=== PATIENT | male | born 1965 | race Caucasian/White ===

== ENCOUNTER 2017-05-20 09:03 | Emergency (ER) | payer BC ==
--- NOTE | 2017-05-20 09:17 | ER Document Report ---
ED Medical Screen (RME) - General Chief Complaint: Skin Problem Stated Complaint: YELLOWISH SKIN Time Seen by Provider: 05/20/17 09:14 Notes: Patient presents with right-sided abdominal pain that radiates to his right back. He also states he noticed that he has been jaundiced. He states he is weak and tired. No vomiting. He states his urine has been very dark. He states that his bowel movements look like sawdust. He states he does not know of anything that has been different recently other than he did receive a pneumonia and tetanus vaccine at the end of April just before the symptoms started. TRAVEL OUTSIDE OF THE [place] IN LAST 30 DAYS: No - Related Data Allergies/Adverse Reactions: No Known Allergies Allergy (Verified 05/20/17 09:08) Past Medical History Endocrine Medical History: Reports: Hx Diabetes Mellitus Type 2 Renal/ Medical History: Denies: Hx Peritoneal Dialysis Past Surgical History: Reports: Hx Orthopedic Surgery - bilat wrists, back - Immunizations Immunizations up to date: Yes Hx Diphtheria, Pertussis, Tetanus Vaccination: Yes Physical Exam - Vital signs Vitals: Temp Pulse Resp BP Pulse Ox 97.8 F 104 H 18 142/71 H 96 05/20/17 09:06 05/20/17 09:06 05/20/17 09:06 05/20/17 09:06 05/20/17 09:06 Course - Vital Signs Vital signs: Temp Pulse Resp BP Pulse Ox 97.8 F 104 H 18 142/71 H 96 05/20/17 09:06 05/20/17 09:06 05/20/17 09:06 05/20/17 09:06 05/20/17 09:06
[2017-05-20 09:52] LABS: HEMATOCRIT 40.1 % (37.9-51.0); HEMOGLOBIN 13.2 g/dL (13.5-17.0); HGB HCT DIFFERENCE -0.5; MEAN CORPUSCULAR HGB CONC 32.9 g/dL (32.0-36.0); MEAN CORPUSCULAR VOLUME 91 fl (80-97); RED CELL DISTRIBUTION WIDTH 14.1 % (11.5-14.0); WHITE BLOOD COUNT 12.1 10^3/uL (4.0-10.5)
[2017-05-20 10:01] LABS: APPEARANCE,URINE CLEAR; BILIRUBIN,URINE MODERATE (NEGATIVE); GLUCOSE, URINE >=500 mg/dL (NEGATIVE); KETONES,URINE 20 mg/dL (NEGATIVE); LEUKOCYTE ESTERASE,URINE NEGATIVE (NEGATIVE); NITRITE,URINE NEGATIVE (NEGATIVE); PROTEIN,URINE 30 mg/dL (NEGATIVE); URINE SPECIFIC GRAVITY 1.032
[2017-05-20 10:14] LABS: ALANINE AMINOTRANSFERASE 487 U/L (21-72); ALBUMIN 3.9 g/dL (3.5-5.0); ALKALINE PHOSPHATASE 958 U/L (38-126); ANION GAP 16 (5-19); ASPARTATE AMINO TRANSFERASE 267 U/L (17-59); BILIRUBIN,DIRECT 14.1 mg/dL (0.0-0.4); BILIRUBIN,TOTAL 15.5 mg/dL (0.2-1.3); BLOOD UREA NITROGEN 17 mg/dL (7-20); CARBON DIOXIDE 16 mmol/L (22-30); CHLORIDE 106 mmol/L (98-107); CREATININE RESULT 0.79 mg/dL (0.52-1.25); GLUCOSE 188 mg/dL (75-110); POTASSIUM 4.3 mmol/L (3.6-5.0); TOTAL PROTEIN 7.5 g/dL (6.3-8.2)
[2017-05-20 10:18] LABS: BASOPHILS % (MANUAL) 0 % (0-2); EOSINOPHILS % (MANUAL) 3 % (0-6); LYMPHOCYTES % (MANUAL) 29 % (13-45); TOTAL CELLS COUNTED 100
[2017-05-20 10:21] LABS: ANISOCYTOSIS 1+; STOMATOCYTES 1+; TARGET CELLS 1+; TOXIC GRANULATION 1+
--- NOTE | 2017-05-20 11:17 | ER Document Report ---
ED GI/ - General Chief Complaint: Skin Problem Stated Complaint: YELLOWISH SKIN Time Seen by Provider: 05/20/17 09:14 Information source: Patient Notes: Patient is a 52-year-old male with past medical history as recorded who presents today with some onset around 48 hours ago of "yellow skin". He states it was noticed by coworkers. He denies any nausea, vomiting, fevers, or previous history of liver or abdominal pathology. Patient states he has had light-colored stools. Patient states some mild epigastric nonradiating abdominal discomfort over the last 48 hours. No previous history of this in the past. TRAVEL OUTSIDE OF THE [place] IN LAST 30 DAYS: No - HPI Patient complains to provider of: Abdominal pain, Other - See above Onset: Other - See above Timing/Duration: Gradual Quality of pain: Achy Severity at maximum: Mild Severity in ED: Almost gone Pain Level: 2 Location: Epigastric Sexual history: Inactive Associated symptoms: Other - See above Exacerbated by: Denies Relieved by: Denies Similar symptoms previously: No Recently seen / treated by doctor: No - Related Data Allergies/Adverse Reactions: No Known Allergies Allergy (Verified 05/20/17 09:08) Past Medical History - General Information source: Patient - Social History Smoking Status: Unknown if Ever Smoked Chew tobacco use (# tins/day): No Smoking Education Provided: No Frequency of alcohol use: None Family History: None Endocrine Medical History: Reports: Hx Diabetes Mellitus Type 2 Renal/ Medical History: Denies: Hx Peritoneal Dialysis Past Surgical History: Reports: Hx Orthopedic Surgery - bilat wrists, back - Immunizations Immunizations up to date: Yes Hx Diphtheria, Pertussis, Tetanus Vaccination: Yes Review of Systems - Review of Systems Constitutional: denies: Fever EENT: denies: Eye discharge, Nose discharge Cardiovascular: denies: Chest pain, Palpitations Respiratory: denies: Short of breath Gastrointestinal: denies: Vomiting Genitourinary: denies: Dysuria Musculoskeletal: denies: Leg swelling Skin: denies: Rash Neurological/Psychological: Other - no slurred speech -: Yes All other systems reviewed and negative Physical Exam - Vital signs Vitals: Temp Pulse Resp BP Pulse Ox 97.8 F 104 H 18 142/71 H 96 05/20/17 09:06 05/20/17 09:06 05/20/17 09:06 05/20/17 09:06 05/20/17 09:06 Notes: Reviewed vital signs and nursing note as charted by RN. CONSTITUTIONAL: Alert and oriented and responds appropriately to questions. Well -appearing; well-nourished HEAD: Normocephalic; atraumatic EYES: Sclerae-icteric ENT: Normal nose; no rhinorrhea; moist mucous membranes; pharynx without lesions noted NECK: Supple without meningismus; non-tender; no cervical lymphadenopathy, no masses CARD: Regular rate and rhythm; no murmurs RESP: Normal chest excursion without splinting or tachypnea; breath sounds clear and equal bilaterally; no wheezes, no rhonchi, no rales ABD/GI: Normal bowel sounds; non-distended; mildly tender to the epigastric region and right upper quadrant without rebound or guarding. Possible distended liver tip. Patient has an elevated BMI BACK: The back appears normal and is non-tender to palpation, there is no CVA tenderness EXT: Normal ROM in all joints; non-tender to palpation; no cyanosis, no effusions, no edema SKIN: Obvious jaundice NEURO: Moves all extremities equally; Motor and sensory function intact PSYCH: The patient's mood and manner are appropriate. Grooming and personal hygiene are appropriate. Course - Re-evaluation Re-evalutation: 05/20/17 11:17 Given the above history and physical examination extensive laboratory values have been ordered. I have added a hepatitis panel. I would initially proceed with an ultrasound and if this is inconclusive we will obtain a CT scan of the abdomen and pelvis. 05/20/17 12:33 No change in exam. Labs as recorded. Gallbladder ultrasound shows a distended gallbladder with distended biliary ducts. I will perform a CT scan of the abdomen and pelvis for better visualization. 05/20/17 15:22 CT scan is recorded. We do not have gastroenterology at this facility. We will attempt to transfer/admit the patient to [facility]. - Vital Signs Vital signs: Temp Pulse Resp BP Pulse Ox 97.4 F 92 16 125/76 97 05/20/17 14:00 05/20/17 14:00 05/20/17 14:00 05/20/17 14:00 05/20/17 14:00 - Laboratory Result Diagrams: 05/20/17 09:38 09/12/17 09:38 Laboratory results interpreted by me: 05/20/17 05/20/17 05/20/17 09:38 09:38 09:38 WBC 12.1 H Hgb 13.2 L RDW 14.1 H Metamyelocytes % 2 H Carbon Dioxide 16 L Glucose 188 H Total Bilirubin 15.5 H Direct Bilirubin 14.1 H AST 267 H ALT 487 H Alkaline Phosphatase 958 H Urine Protein 30 H Urine Glucose (UA) >=500 H Urine Ketones 20 H Urine Bilirubin MODERATE H Urine Urobilinogen 4.0 H Discharge - Discharge Clinical Impression: Pancreatic mass, Hyperbilirubinemia Condition: Serious Disposition: [place] Referrals: JORGE SOLIMAN DO [Primary Care Provider] - Follow up as needed
--- NOTE | 2017-05-20 12:23 | RADIOLOGY REPORT (SQ) ---
EXAM DESCRIPTION: U/S ABDOMEN LIMITED W/O DOP COMPLETED DATE/TIME: 05/20/2017 11:45 am REASON FOR STUDY: 5, Jaundice; mild abdominal epigastric pain COMPARISON: None. TECHNIQUE: Dynamic and static grayscale images acquired of the abdomen and recorded on PACS. Additio nal selected color Doppler and spectral images recorded. LIMITATIONS: MIDLINE BOWEL GAS FINDINGS: PANCREAS: Pancreatic head not well seen LIVER: No masses. Echotexture normal. Mild intrahepatic biliary ductal dilatation LIVER VASCULATURE: Normal directional flow of the main portal vein and hepatic veins. GALLBLADDER: No stones. Normal wall thickness. No pericholecystic fluid. Gallbladder is distended, 1 4 cm in length. ULTRASOUND-DETECTED DEL RIO'S SIGN: Negative. INTRAHEPATIC DUCTS AND COMMON DUCT: Mild intrahepatic biliary ductal dilatation. Common bile duct 1 cm in diameter at the mingo hepatis. Distal most common duct not well seen. Distal ductal stone or stricture, or pancreatic head lesion with biliary obstruction could be present. INFERIOR VENA CAVA: Not well seen AORTA: No aneurysm. RIGHT KIDNEY: Normal size. Normal echogenicity. No solid or suspicious masses. No hydronephrosis. No calcifications. PERITONEAL AND RIGHT PLEURAL SPACE: No ascites or effusions. OTHER: No other significant findings. IMPRESSION: Biliary ductal dilatation. Distended gallbladder. Distal common duct/pancreas not well seen. Distal ductal stone or stricture may be present. Pancreatic head mass causing biliary outflo w obstruction could not be excluded. TECHNICAL DOCUMENTATION: JOB ID: [id number] [employer]- All Rights Reserved
--- NOTE | 2017-05-20 14:22 | RADIOLOGY REPORT (SQ) ---
EXAM DESCRIPTION: CT ABD/PELVIS WITH IV ONLY COMPLETED DATE/TIME: 05/20/2017 1:45 pm REASON FOR STUDY: jaundice; dialated biliary ducts COMPARISON: Abdominal ultrasound 05/20/2017 TECHNIQUE: CT scan of the abdomen and pelvis performed using helical scanning technique with dynamic intravenous contrast injection. No oral contrast. Images reviewed with lung, soft tissue, and bone windows. Reconstructed coronal and sagittal MPR images reviewed. Delayed images for evaluation of the urinary system also acquired. All images stored on PACS. All CT scanners at this facility use dose modulation, iterative reconstruction, and/or weight based d osing when appropriate to reduce radiation dose to as low as reasonably achievable (ALARA). [facility]: Dose Right [facility]: CareDose [facility]: Dose Right [facility]: Teradose 4D [facility]: OpenFeint CONTRAST TYPE AND DOSE: contrast/concentration: Isovue 370.00 mg/ml; Total Contrast Delivered: 99.0 ml; Total Saline Delivered: 70.0 ml RENAL FUNCTION: Creatinine 0.8 RADIATION DOSE: Up-to-date CT equipment and radiation dose reduction techniques were employed. CTDIv ol: 21.1 - 21.1 mGy. DLP: 2527 mGy-cm.. LIMITATIONS: None. FINDINGS: An ill-defined 2.5 x 2 cm mass is present pancreatic head near the ampulla, best shown on axial images 36-39 and coronal image 39. This is worrisome for primary tumor. There are intact fat planes between the pancreatic head and superior mesenteric artery and superior m esenteric vein. A 7 mm lymph node is present in the peripancreatic fat just ventral to the pancreati c head on axial image 33. Remainder of the pancreas is otherwise unremarkable. No peripancreatic fluid collections, or pancrea tic tail atrophy or pancreatic ductal dilatation. Common bile duct at the mingo hepatis 1 cm. Gallbladder distended, 15 cm in length. LOWER CHEST: No significant findings. No nodules or infiltrates. LIVER: Normal size. No masses. Very mild intrahepatic biliary ductal dilatation. SPLEEN: Normal size. No focal lesions. PANCREAS: As above GALLBLADDER: Distended. No stones or pericholecystic fluid. ADRENAL GLANDS: No significant masses or asymmetry. RIGHT KIDNEY AND URETER: No solid masses. No significant calcifications. No hydronephrosis or hyd roureter. LEFT KIDNEY AND URETER: No solid masses. Left upper pole renal cortical cyst, 4.7 cm in length. No significant calcifications. No hydronephrosis or hydroureter. AORTA AND VESSELS: No aneurysm. No dissection. Renal arteries, SMA, celiac without stenosis. RETROPERITONEUM: No retroperitoneal adenopathy, hemorrhage or masses. BOWEL AND PERITONEAL CAVITY: No masses or inflammatory changes. No free fluid or peritoneal masses. APPENDIX: Normal. PELVIS: No mass. No free fluid. Normal bladder. ABDOMINAL WALL: No masses. No hernias. BONES: No significant or acute findings. OTHER: No other significant finding. IMPRESSION: 2.5 x 2 cm pancreatic head mass with biliary outflow obstruction TECHNICAL DOCUMENTATION: JOB ID: [id number] Quality ID # [id number]: Final reports with documentation of one or more dose reduction techniques (e.g., Au tomated exposure control, adjustment of the mA and/or kV according to patient size, use of iterative reconstruction technique) 2010 [email or web address]- All Rights Reserved
[2017-05-20 15:55] LABS: ADD ON TESTING BLD IN LAB ACKNOWLEDGE
[2017-05-20 16:22] LABS: LIPASE 296.8 U/L (23-300)
[2017-05-20 19:43] VITALS: BP 129/60
== END 2017-05-20 18:45 | disposition short-term general hospital (02) ==
LOC: ER 09:03
DX: E80.6 Other disorders of bilirubin metabolism (principal); K86.9 Disease of pancreas, unspecified; K82.8 Other specified diseases of gallbladder; R10.13 Epigastric pain; R10.816 Epigastric abdominal tenderness; R10.811 Right upper quadrant abdominal tenderness; E11.9 Type 2 diabetes mellitus without complications
CPT/HCPCS: 36415; 74177; 76705; 80053; 80074; 81001; 83690; 85025; 99285

== ENCOUNTER → 2018-01-28 | Outpatient (CLI) | payer MEDICAID ==
--- NOTE | 2018-01-29 09:42 | RADIOLOGY REPORT (SQ) ---
EXAM DESCRIPTION: MRI HEAD COMBO COMPLETED DATE/TIME: 01/28/2018 9:23 pm REASON FOR STUDY: C25.0 MALIGNANT NEOPLASM OF HEAD OF PANCREAS R29.6REPEATED FALLS R52 PAIN, R52 PA IN, UNSPECIFIED C25.0 MALIGNANT NEOPLASM OF HEAD OF PANCREAS R29.6 REPEATED FALLS COMPARISON: CT abdomen pelvis 05/20/2017 TECHNIQUE: Multiplanar imaging includes noncontrasted T1, T2, FLAIR, diffusion with ADC map and post gadolinium contrast T1 sequences. Images stored on PACS. CONTRAST TYPE AND DOSE: 20 mL Multihance. RENAL FUNCTION: GFR > 60. LIMITATIONS: None. FINDINGS: ANATOMY: No anomalies. Normal vascular flow voids. Pituitary fossa normal. CSF SPACES: In the anterior aspect left middle cranial fossa/ left greater wing sphenoid bone a well- circumscribed benign-appearing nodule is present, bright on T2, near water signal on T1 without signi ficant contrast enhancement. No significant mass effect on adjacent brain parenchyma. No impingemen t on the left optic canal or orbit. This is best shown on axial T2 image 13, measuring 2.2 by 1.6 cm in size. This is either a benign epidermoid in the anterior aspect middle cranial fossa or benign-a ppearing chondroid lesion along greater wing sphenoid bone. This is of doubtful clinical significanc e. CEREBRUM: Sulci and gyri normal in size and contour. Normal white matter signal on FLAIR imaging. No evidence of hemorrhage, mass, or extraaxial fluid collection. No abnormal enhancement post contrast. POSTERIOR FOSSA: No signal alteration. No hemorrhage. No edema, masses, or mass effect. Internal sugey tory canals, cerebellopontine angles, mastoids normal. No enhancing lesions. No abnormal enhancement post contrast. DIFFUSION IMAGING: Negative for acute or subacute infarction. ORBITS: No masses. Globes normal. PARANASAL SINUSES: No fluid levels. Mucosa normal. OTHER: No other significant finding. IMPRESSION: No CT evidence of metastatic disease given history of pancreatic cancer. Benign-appearing epidermoid in the anterior aspect left middle cranial fossa, or nonaggressive chondr oid lesion in the greater wing left sphenoid bone EVIDENCE OF ACUTE STROKE: NO. TECHNICAL DOCUMENTATION: JOB ID: [id number] [employer]- All Rights Reserved Reading location - IP/workstation name: [email or web address]
--- NOTE | 2018-01-29 10:11 | RADIOLOGY REPORT (SQ) ---
EXAM DESCRIPTION: MRI LUMBAR SPINE COMBO COMPLETED DATE/TIME: 01/28/2018 9:30 pm REASON FOR STUDY: C25.0 R52 PAIN, UNSPECIFIED C25.0 MALIGNANT NEOPLASM OF HEAD OF PANCREAS R29.6 REPEATED FALLS COMPARISON: CT abdomen pelvis 05/20/2017 TECHNIQUE: Sagittal and Axial imaging includes T1, T1 post gadolinium, T2, STIR and gradient echo se quences. Coronal T2/HASTE imaging. CONTRAST TYPE AND DOSE: 20 mL Multihance. RENAL FUNCTION: GFR > 60. LIMITATIONS: None. FINDINGS: VISUALIZED UPPER ABDOMEN: Not well seen, on the sagittal images, there is an enlarged panc reatic head. SEGMENTATION: No transitional anatomy. The lowest well-developed disc space is labeled L5-S1. ALIGNMENT: Anatomic. VERTEBRAE: Intact. No fractures. BONE MARROW: Diffuse bony involvement with metastatic disease throughout the vertebral bodies from T1 1 through the sacrum. Posterior innominate bone metastatic disease is also present. No epidural bul ky tumor. No MR evidence of pathologic compression fracture. DISC SIGNAL: Diffuse decreased T2 weighted intervertebral disc signal. POSTERIOR ELEMENTS: Generally intact. No pars defect evident. HARDWARE: None in the spine. CORD AND CONUS: Normal in size and signal intensity. Conus at the T12-L1 level. L1-L2: No significant spinal stenosis or exit foraminal stenosis. Mild bilateral facet hypertrophy L2-L3: Mild diffuse posterior disc bulging and moderate bilateral facet and ligament hypertrophy caus e borderline central canal narrowing and mild bilateral inferior foraminal narrowing without exiting L2 nerve root impingement. L3-L4: Mild diffuse posterior disc bulging and moderate bilateral facet and ligament hypertrophy caus e borderline central canal narrowing. Moderate bilateral inferior foraminal narrowing without exitin g L3 nerve root impingement. L4-L5: Broad diffuse posterior disc bulging with small central disc protrusion and moderate facet hyp ertrophy causes moderate central canal narrowing with flattening of the thecal sac and partial efface ment of the CSF around the lumbar nerve roots. This is best shown on axial T2 image 25. Elsewhere a t L4-5, there is moderate bilateral foraminal narrowing without exiting L4 nerve root impingement L5-S1: Minimal posterior disc bulging, mild facet hypertrophy. No central or foraminal encroachment LOWER THORACIC: Incompletely imaged. No stenosis seen. SACRUM: Visualized upper sacrum intact. ENHANCEMENT: No definite abnormal conus or lumbar nerve root enhancement. Metastatic lesions through out the spine exhibit faint peripheral rim enhancement. No enhancing epidural tumor. OTHER: No other significant findings. IMPRESSION: Central canal stenosis at L4-5 Diffuse bony metastatic disease without bulky epidural tumor TECHNICAL DOCUMENTATION: JOB ID: [id number] [employer]- All Rights Reserved Reading location - IP/workstation name: [email or web address]
== END ==
LOC: II 19:13
PROVIDERS: ATTEND Internal Medicine Medical Oncology
DX: C79.52 Secondary malignant neoplasm of bone marrow (principal); C25.0 Malignant neoplasm of head of pancreas; M48.061 Spinal stenosis, lumbar region without neurogenic claudication; R52 Pain, unspecified; R53.1 Weakness; R29.6 Repeated falls
CPT/HCPCS: 70553; 72158; A9577

== ENCOUNTER 2018-02-04 10:36 | Emergency (ER) | payer MEDICAID ==
[2018-02-04] MEDS ORDERED: PROMETHAZINE HCL 25 MG TABLET PO ONE (10:59)
[2018-02-04] MEDS ORDERED: OXYCODONE-ACETAMINOPHEN 5-325 MG TABLET PO ONE (10:59)
--- NOTE | 2018-02-04 11:53 | ER Document Report ---
ED Fall - General Chief Complaint: Fall Stated Complaint: FALL/RIB PAIN Time Seen by Provider: 02/04/18 10:59 Notes: Patient says he fell in the shower about 9 AM this morning. Landed on his left lateral posterior ribs and also hit his head. It hurts him significantly to take a deep breath or move. He did not have a loss of consciousness but does have a scrape on his right scalp. Denies any neck pain. No neurologic deficit. Denies any other injuries. Patient is been feeling generalized weakness, but is undergoing chemotherapy for pancreatic cancer every other week. Has had to be transfused in the past. TRAVEL OUTSIDE OF THE [place] IN LAST 30 DAYS: No - Related data Allergies/Adverse Reactions: No Known Allergies Allergy (Verified 05/20/17 09:08) Past Medical History - Social History Smoking Status: Unknown if Ever Smoked Frequency of alcohol use: None Drug Abuse: None Family History: None, Reviewed & Not Pertinent Patient has suicidal ideation: No Patient has homicidal ideation: No Endocrine Medical History: Reports: Hx Diabetes Mellitus Type 2 Malignancy Medical History: Reports Hx Pancreatic Cancer - Currently on chemo. Past Surgical History: Reports: Hx Orthopedic Surgery - bilat wrists, back - Immunizations Immunizations up to date: Yes Hx Diphtheria, Pertussis, Tetanus Vaccination: Yes Review of Systems - Review of Systems Notes: REVIEW OF SYSTEMS: CONSTITUTIONAL : Denies fever. EENT: Denies eye, ear, nose or mouth or throat pain or other symptoms. CARDIOVASCULAR: See HPI.. RESPIRATORY: Denies cough, chest congestion, or shortness of breath, but extreme pain to take a deep breath or move the left chest wall. GASTROINTESTINAL: Denies abdominal pain or nausea, vomiting, or diarrhea. No tenderness in the left upper quadrant where the spleen is located. GENITOURINARY: Denies difficulty or painful urinating, urinary frequency, blood in urine. MUSCULOSKELETAL: Denies back or neck pain. Denies joint pain or swelling. SKIN: Denies rash or skin lesions. NEUROLOGICAL: Denies LOC or altered mental status. Denies headache. Denies sensory loss or motor deficits. ALL OTHER SYSTEMS REVIEWED AND NEGATIVE. Physical Exam - Vital signs Vitals: Resp 22 H 02/04/18 10:49 Interpretation: Hypotensive - Not felt to be clinically significant. - Notes Notes: PHYSICAL EXAMINATION: GENERAL: Well-appearing, in no acute distress. Blood pressures tend to be a little bit low with in the 90s or 100s. Patient is not in shock. HEAD: Atraumatic, normocephalic except for a 2 cm shallow abrasion of the right mid scalp. No significant hematoma formation.. EYES: Pupils equal round and reactive to light, extraocular movements intact. ENT: oropharynx clear without exudates. Moist mucous membranes. NECK: Normal range of motion, supple. LUNGS: Breath sounds clear and equal bilaterally. Very tender to touch or press on the left infrascapular region of the back. No subcutaneous air felt. HEART: Regular rate and rhythm without murmurs. ABDOMEN: Soft, nontender. No guarding or rebound. No masses. No tenderness in the left upper quadrant where the spleen is located. BACK: Tender in the right thoracic back region, infrascapular region. EXTREMITIES: Normal range of motion without pain except in the back. NEUROLOGICAL: Normal speech, normal gait. Normal sensory, motor, and reflex exams. Awake, alert, and oriented x3. l. PSYCH: Mood: ppears likely to be depressed. SKIN: Warm, dry, no rashes. Course - Re-evaluation Re-evalutation: 02/04/18 11:52 Notified by nurse the patient's blood pressure was lower, systolic in the 80s. Family says he has had history of low blood pressure and has had a transfusion just a week or 2 ago. Patient remains alert. Not diaphoretic. We will give him some fluids and check labs. 02/04/18 19:24 Before patient was discharged, I called Dr. Washington and shared with her the patient's lab results. She said that they were okay for the patient be discharged. Recommended that they repeat the labs on Friday. - Vital Signs Vital signs: Temp Pulse Resp BP Pulse Ox 20 96/66 L 100 02/04/18 14:43 02/04/18 14:45 02/04/18 11:42 - Laboratory Result Diagrams: 02/04/18 10:43 02/04/18 10:43 Laboratory results interpreted by me: 02/04/18 02/04/18 10:43 10:43 WBC 25.9 H RBC 2.76 L Hgb 8.0 L Hct 24.5 L RDW 17.3 H Plt Count 23 L* Seg Neuts % (Manual) 88 H Lymphocytes % (Manual) 6 L Abs Neuts (Manual) 22.8 H Abs Monocytes (Manual) 1.6 H Potassium 3.4 L Glucose 279 H Calcium 8.3 L Direct Bilirubin 0.5 H Alkaline Phosphatase 864 H Creatine Kinase 24 L Albumin 3.1 L - Diagnostic Test Radiology reviewed: Image reviewed, Reports reviewed - CT scan of the head was negative. Radiology results interpreted by me: 02/04/18 19:25 X-rays reveal fracture of a single rib, the seventh rib on the left. Lung appears normal with no evidence of pneumothorax. - EKG Interpretation by Me EKG shows normal: Sinus rhythm Rate: Normal Rhythm: NSR Discharge - Discharge Clinical Impression: Fall, Contusion of head, Fractured rib Condition: Stable Disposition: HOME, SELF-CARE Additional Instructions: HEAD INJURY PRECAUTIONS: At this point, there is no evidence that your head injury is serious. Observation is necessary, however. Take only clear liquids for the first few hours, unless told otherwise by the doctor. If no pain medication was prescribed, you may take acetaminophen according to the directions on the bottle. Do not take any medication that may alter your level of alertness (unless you've discussed it with the doctor first) . Limit activity for the first 24 hours. Bed rest is best. During the first 24 hours, check to see approximately every two to three hours that the patient is easily arousable, responds normally, and can perform common tasks such as walking without difficulty. Contact your doctor or go to the hospital if any of the following things occur: Persistent vomiting, difficulty in arousing the patient, worsening or continued headache, or failure to improve as expected. Head injuries can cause symptoms that persist for a few days or even a few weeks. CONTUSION: Your injury has resulted in a contusion -- a crushing of the deep tissues. No injury to important structures was detected during the physician's exam. Contusions vary in the amount of pain they cause, and in the length of time required for healing. Typically, the area will become bruised, and will remain painful to touch for two or three weeks. However, most patients are back to working and playing within a few days. After the initial period of rest and cold-packs, your symptoms (together with the doctor's recommendations) will determine how rapidly you can get back to full activity. Usually this means "do what feels okay, but don't do things that hurt." If re-examination was recommended, it's important to follow up as instructed. Call the doctor or return any time if pain increases, if swelling becomes severe, if you develop numbness or weakness in an injured extremity, or if any other alarming symptoms occur. ABRASIONS: An abrasion is a scraping injury of the skin. Some scarring may result. The seriousness of an abrasion is not always obvious at first. Hidden tissue damage may be present and infection may occur despite proper care. Complete healing may take from ten days to as long as a month. The healing time depends on the depth of the abrasion, and on the amount of crushing of underlying tissues from the injury. Keep the wound and dressing clean. Do not shower or bathe the area until okayed by the doctor. If the dressing gets wet, remove it and blot the wound dry, then reapply a clean dressing. Dressings should be changed every day. Sunscreen should be used for six months after the skin is healed. If any signs of infection occur (swelling, redness, increasing tenderness, red streaks, profuse purulent drainage from the abrasion, tender lumps in the armpit or groin above the abrasion, or fever), see the doctor immediately. Rib Injuries and Fractures You have been diagnosed as having either bruised or broken ribs. These two injuries are treated in the same way. It will usually take four to six weeks for these injured ribs to heal. Sometimes, rib belts or anesthetic injections of the chest wall help reduce the pain. If you are using a rib belt, you should cough or take a deep breath at least every hour or two to prevent lung complications. You should not engage in any strenuous physical activity until released by your physician. The usual rule is "if it hurts, don't do it." Rib fractures can lead to serious lung complications including lung collapse, hemorrhage, and pneumonia. You should call the physician or return at once if any of the following occur: (1) Fever or chills. (2) Persistent cough, coughing up blood, or shortness of breath. (3) Increasing pain. (4) Weakness, lightheadedness, or fainting. NON-SUTURED LACERATION: Your laceration did not require suturing. Some lacerations cannot be sutured because of increased infection risk, while others simply don't need stitches because they are shallow or very short. Your injury should be protected while it heals. Usually complete healing takes 10 to 14 days. Keep the dressing clean and dry, and change it every day. If you notice increasing pain, redness, swelling, drainage, or tender lumps in the armpit or groin above the injury, infection may be present. You should call the doctor at once. ORAL NARCOTIC MEDICATION: You have been given a prescription for pain control. This medication is a narcotic. It's best taken with food, as nausea can result if taken on an empty stomach. Don't operate machinery or drive within six hours of taking this medication. Do not combine this medicine with alcohol, or with any medication which can cause sedation (such as cold tablets or sleeping pills) unless you get permission from the physician. Narcotics tend to cause constipation. If possible, drink plenty of fluids and eat a diet high in fiber and fruits. FOLLOW-UP CARE: If you have been referred to a physician for follow-up care, call the physician s office for an appointment as you were instructed or within the next two days. If you experience worsening or a significant change in your symptoms, notify the physician immediately or return to the Emergency Department at any time for re-evaluation. Follow-up with Dr. Washington Friday of next week. Prescriptions: Hydromorphone HCl [Dilaudid 2 mg Tablet] 2 mg PO Q4HP PRN #20 tablet PRN Reason: Referrals: JORGE SOLIMAN DO [Primary Care Provider] - Follow up as needed BRYSON WASHINGTON MD [ACTIVE STAFF] - Follow up in 3-5 days
[2018-02-04 12:48] LABS: ALANINE AMINOTRANSFERASE 29 U/L (21-72); ALBUMIN 3.1 g/dL (3.5-5.0); ALKALINE PHOSPHATASE 864 U/L (38-126); ANION GAP 12 (5-19); ASPARTATE AMINO TRANSFERASE 22 U/L (17-59); BILIRUBIN,DIRECT 0.5 mg/dL (0.0-0.4); BILIRUBIN,TOTAL 0.5 mg/dL (0.2-1.3); BLOOD UREA NITROGEN 11 mg/dL (7-20); CALCIUM 8.3 mg/dL (8.4-10.2); CARBON DIOXIDE 25 mmol/L (22-30); CHLORIDE 102 mmol/L (98-107); CREATINE KINASE 24 U/L (55-170); GLUCOSE 279 mg/dL (75-110); HEMATOCRIT 24.5 % (37.9-51.0); MEAN CORPUSCULAR HGB CONC 32.6 g/dL (32.0-36.0); MEAN CORPUSCULAR VOLUME 89 fl (80-97); POTASSIUM 3.4 mmol/L (3.6-5.0); RED BLOOD COUNT 2.76 10^6/uL (4.35-5.55); RED CELL DISTRIBUTION WIDTH 17.3 % (11.5-14.0); SODIUM 139.3 mmol/L (137-145); TOTAL PROTEIN 6.3 g/dL (6.3-8.2); WHITE BLOOD COUNT 25.9 10^3/uL (4.0-10.5)
--- NOTE | 2018-02-04 12:52 | RADIOLOGY REPORT (SQ) ---
EXAM DESCRIPTION: RIBS LEFT W/PA CHEST COMPLETED DATE/TIME: 02/04/2018 12:27 pm REASON FOR STUDY: Fell and hit left ribs this morning COMPARISON: None. TECHNIQUE: Frontal view of the chest and additional views of the left ribs acquired. NUMBER OF VIEWS: Four views LIMITATIONS: Patient has made a shallow inspiration FINDINGS: FRONTAL CXR: Posterolaterally. No other evidence for fracture is seen. RIBS: There is a fracture involving the left 7th rib posterolaterally. No other evidence for fractur e is seen. OTHER: Right-sided Port-A-Cath is identified with its tip the level of the superior vena cava. IMPRESSION: NO PNEUMOTHORAX. Fracture of the left 7th rib as noted above. No other evidence for fr acture is seen COMMENT: SITE OF TRAUMA/COMPLAINT MARKED/STAMP COMPLETED: Yes TECHNICAL DOCUMENTATION: JOB ID: [id number] [employer]- All Rights Reserved Reading location - IP/workstation name: [email or web address]
[2018-02-04 13:00] LABS: CREATINE KINASE MB 0.25 ng/mL (<4.55); TROPONIN I < 0.012 ng/mL
--- NOTE | 2018-02-04 13:01 | RADIOLOGY REPORT (SQ) ---
EXAM DESCRIPTION: CT HEAD WITHOUT COMPLETED DATE/TIME: 02/04/2018 12:48 pm REASON FOR STUDY: Fell and hit head this morning. COMPARISON: None. TECHNIQUE: Axial images acquired through the brain without intravenous contrast. Images reviewed wi th bone, brain and subdural windows. Images stored on PACS. All CT scanners at this facility use dose modulation, iterative reconstruction, and/or weight based d osing when appropriate to reduce radiation dose to as low as reasonably achievable (ALARA). [facility]: Dose Right [facility]: CareDose [facility]: Dose Right [facility]: Teradose 4D [facility]: [employer] RADIATION DOSE: CT Rad equipment meets quality standard of care and radiation dose reduction techniq ues were employed. CTDIvol: 53.2 mGy. DLP: 1017 mGy-cm. mGy. LIMITATIONS: None. FINDINGS: VENTRICLES: Normal size and contour. CEREBRUM: No masses. No hemorrhage. No midline shift. No evidence for acute infarction. Normal gra y/white matter differentiation. No areas of low density in the white matter. CEREBELLUM: No masses. No hemorrhage. No alteration of density. No evidence for acute infarction. EXTRAAXIAL SPACES: No fluid collections. No masses. ORBITS AND GLOBE: No intra- or extraconal masses. Normal contour of globe without masses. CALVARIUM: No fracture. PARANASAL SINUSES: No fluid or mucosal thickening. SOFT TISSUES: No mass or hematoma. OTHER: No other significant finding. IMPRESSION: NORMAL BRAIN CT WITHOUT CONTRAST. EVIDENCE OF ACUTE STROKE: NO. COMMENT: Quality ID # [id number]: Final reports with documentation of one or more dose reduction techniques (e.g., Automated exposure control, adjustment of the mA and/or kV according to patient size, use of iterative reconstruction technique) TECHNICAL DOCUMENTATION: JOB ID: [id number] [employer] All Rights Reserved Reading location - IP/workstation name: [email or web address]
[2018-02-04 13:26] LABS: PLATELET COUNT 23 10^3/uL (150-450)
[2018-02-04 13:30] LABS: ABSOLUTE LYMPHOCYTES# (MANUAL) 1.6 10^3/uL (0.5-4.7); ABSOLUTE MONOCYTES # (MANUAL) 1.6 10^3/uL (0.1-1.4); ABSOLUTE NEUTROPHILS# (MANUAL) 22.8 10^3/uL (1.7-8.2); ANISOCYTOSIS 2+; BASOPHILS % (MANUAL) 0 % (0-2); EOSINOPHILS % (MANUAL) 0 % (0-6); HYPOCHROMASIA SLIGHT; LYMPHOCYTES % (MANUAL) 6 % (13-45); MONOCYTES % (MANUAL) 6 % (3-13); OVALOCYTES SLIGHT; PLATELET COMMENT DECREASED; POIKILOCYTOSIS SLIGHT; POLYCHROMASIA 1+; SEGMENTED NEUTROPHILS % (MAN) 88 % (42-78); TOTAL CELLS COUNTED 100; TOXIC GRANULATION 2+
[2018-02-04] MEDS ORDERED: HYDROMORPHONE HCL INJ/PF 2 MG/ML AMPULE IV ONE (13:46)
[2018-02-04 15:17] VITALS: BP 96/66
--- NOTE | 2018-02-04 23:07 | EKG REPORT ---
SEVERITY:- ABNORMAL ECG - SINUS RHYTHM VENTRICULAR PREMATURE COMPLEX SINUS PAUSE/ARREST WITH ATRIAL ESCAPE VS BLOCKED APC BORDERLINE LEFT AXIS DEVIATION : Confirmed by: Robert Villalobos 04-Feb-2018 23:06:32
[2018-02-05 13:25] LABS: PATH REVIEW PATHOLOGIST REVIEWED
== END 2018-02-04 15:26 | disposition home or self-care (01) ==
LOC: ER 10:36
DX: S22.32XA Fracture of one rib, left side, initial encounter for closed fracture (principal); S00.01XA Abrasion of scalp, initial encounter; R07.81 Pleurodynia; W18.2XXA Fall in (into) shower or empty bathtub, initial encounter; Y93.E1 Activity, personal bathing and showering; C25.9 Malignant neoplasm of pancreas, unspecified
CPT/HCPCS: 93005; 99284; 96374; 36415; 82553; 82550; 85025; 80053; 84484; 71101; 70450; 93010; J1170; J3490

== ENCOUNTER 2018-02-26 09:56 | Inpatient (IN) | payer MEDICAID ==
[2018-02-26 10:29] LABS: HEMOGLOBIN 10.2 g/dL (13.5-17.0); MEAN CORPUSCULAR HEMOGLOBIN 27.7 pg (27.0-33.4); MEAN CORPUSCULAR VOLUME 87 fl (80-97); RED CELL DISTRIBUTION WIDTH 17.7 % (11.5-14.0)
[2018-02-26 10:47] LABS: PLATELET COUNT 91 10^3/uL (150-450)
[2018-02-26 10:49] LABS: ALANINE AMINOTRANSFERASE 48 U/L (21-72); ALBUMIN 2.9 g/dL (3.5-5.0); ALKALINE PHOSPHATASE 738 U/L (38-126); ANION GAP 14 (5-19); ASPARTATE AMINO TRANSFERASE 220 U/L (17-59); BILIRUBIN,TOTAL 1.8 mg/dL (0.2-1.3); BLOOD UREA NITROGEN 17 mg/dL (7-20); CARBON DIOXIDE 27 mmol/L (22-30); CHLORIDE 103 mmol/L (98-107); GLUCOSE 237 mg/dL (75-110); POTASSIUM 3.9 mmol/L (3.6-5.0); SODIUM 143.7 mmol/L (137-145); TOTAL PROTEIN 6.8 g/dL (6.3-8.2)
[2018-02-26 10:51] LABS: LIPASE < 10.0 U/L (23-300); WHITE BLOOD COUNT 31.9 10^3/uL (4.0-10.5)
[2018-02-26 11:08] LABS: ABSOLUTE LYMPHOCYTES# (MANUAL) 1.9 10^3/uL (0.5-4.7); BAND NEUTROPHILS % (MANUAL) 3 % (3-5); BASOPHILS % (MANUAL) 0 % (0-2); EOSINOPHILS % (MANUAL) 0 % (0-6); LYMPHOCYTES % (MANUAL) 5 % (13-45); MONOCYTES % (MANUAL) 0 % (3-13); SEGMENTED NEUTROPHILS % (MAN) 91 % (42-78); TOTAL CELLS COUNTED 100
[2018-02-26 11:10] LABS: ACANTHOCYTES SLIGHT; BURR CELLS SLIGHT; PLATELET COMMENT DECREASED; PLATELET LARGE PRESENT; POIKILOCYTOSIS 1+; POLYCHROMASIA SLIGHT; SCHISTOCYTES SLIGHT; TOXIC GRANULATION 2+; TOXIC VACUOLATION PRESENT
[2018-02-26] MEDS ORDERED: NORMAL SALINE 1000 ML 1,000 ML IV ONE (11:42)
[2018-02-26] MEDS ORDERED: PIPERACILLIN/TAZOBACTAM 3.375 GM VIAL IV ONE (12:14)
[2018-02-26] MEDS ORDERED: VANCOMYCIN HCL INJ 1000 MG VIAL IV ONE (12:15)
--- NOTE | 2018-02-26 12:31 | ER Document Report ---
ED General - General Mode of Arrival: Ambulatory Information source: Patient TRAVEL OUTSIDE OF THE [place] IN LAST 30 DAYS: No <SKYLER OMRALES - Last Filed: 02/26/18 15:19> <SOPHIA JACKSON - Last Filed: 02/28/18 15:06> - General Chief Complaint: Weakness Stated Complaint: WEAKNESS Time Seen by Provider: 02/26/18 11:27 Notes: Patient is a 52-year-old male who presents to the emergency department today with complaints of generalized weakness. Patient has stage IV pancreatic cancer with metastasis to the bone and is currently on chemotherapy. Patient states he has had increasing abdominal pain over the last 4 days. Patient started on Lovenox on Friday for possible clot in his left arm. Patient denies dysuria, fevers, cough, or congestion. (SKYLER MORALES) - Related Data Allergies/Adverse Reactions: oxycodone [From Percocet] Allergy (Verified 02/26/18 13:36) Past Medical History - General Information source: Patient - Social History Smoking Status: Former Smoker Cigarette use (# per day): No Frequency of alcohol use: None Drug Abuse: None Lives with: Family Family History: None, Reviewed & Not Pertinent Patient has suicidal ideation: No Patient has homicidal ideation: No Endocrine Medical History: Reports: Hx Diabetes Mellitus Type 2 Malignancy Medical History: Reports Hx Pancreatic Cancer - Currently on chemo. Stage IV Past Surgical History: Reports: Hx Orthopedic Surgery - bilat wrists, back - Immunizations Immunizations up to date: Yes Hx Diphtheria, Pertussis, Tetanus Vaccination: No <SKYLER MORALES - Last Filed: 02/26/18 15:19> Review of Systems - Review of Systems Constitutional: See HPI, Chills. denies: Fever EENT: denies: Nose congestion Cardiovascular: No symptoms reported Respiratory: denies: Cough Gastrointestinal: See HPI, Abdominal pain Genitourinary: No symptoms reported Male Genitourinary: No symptoms reported Musculoskeletal: No symptoms reported Skin: No symptoms reported Hematologic/Lymphatic: No symptoms reported Neurological/Psychological: No symptoms reported -: Yes All other systems reviewed and negative <SKYLER MORALES - Last Filed: 02/26/18 15:19> Physical Exam - Vital signs Interpretation: Hypotensive, Tachycardic <SKYLER MORALES - Last Filed: 02/26/18 15:19> <SOPHIA JACKSON - Last Filed: 02/28/18 15:06> - Vital signs Vitals: Resp 22 H 02/26/18 10:05 - Notes Notes: Physical Exam: General: Alert, appears chronically ill appearing. HEENT: Normocephalic. Atraumatic. PERRL. Extraocular movements intact. Oropharynx clear. Neck: Supple. Non-tender. Respiratory: No respiratory distress. Clear and equal breath sounds bilaterally. Cardiovascular: Tachycardic, regular rhythm. Abdominal: Mild diffuse abdominal tenderness with palpation. No distension. Normal Bowel Sounds. Back: Non-tender. No deformity or step off. Extremities: Moves all four extremities. Upper extremities: Normal inspection. Normal ROM. Lower extremities: Normal inspection. No edema. Normal ROM. Neurological: Normal cognition. AAOx4. Normal speech. Psychological: Normal affect. Normal Mood. Skin: Warm. Dry. Slightly jaundiced. (SKYLER MORALES) Course - Laboratory Result Diagrams: 02/26/18 10:11 02/26/18 10:11 <SKYLER MORALES - Last Filed: 02/26/18 15:19> - Laboratory Result Diagrams: 02/27/18 06:45 02/27/18 05:49 - EKG Interpretation by Nv EKG shows normal: Sinus rhythm Rate: Tachycardia Rhythm: NSR - normal axis, non specific ST abnormalities <SOPHIA JACKSON - Last Filed: 02/28/18 15:06> - Re-evaluation Re-evalutation: 02/26/18 12:31 Patient found to have leukocytosis elevated lactic acid concern for sepsis broad -spectrum antibiotics were started after discussion with patient's oncologist over the phone. Will be admitted to hospitalist for further care. Blood cultures and urine obtained prior to antibiotics (SOPHIA JACKSON) - Vital Signs Vital signs: Temp Pulse Resp BP Pulse Ox 98.2 F 110 H 22 H 97/69 L 92 02/27/18 22:39 02/27/18 15:39 02/27/18 23:56 02/27/18 23:56 02/27/18 23:56 - Laboratory Laboratory results interpreted by va: 02/26/18 02/26/18 02/26/18 10:11 10:11 10:11 WBC 31.9 H* RBC 3.70 L Hgb 10.2 L Hct 32.0 L RDW 17.7 H Plt Count 91 L Seg Neuts % (Manual) 91 H Lymphocytes % (Manual) 5 L Monocytes % (Manual) 0 L Abs Neuts (Manual) 30.0 H Abs Monocytes (Manual) 0.0 L Glucose 237 H Lactic Acid 3.7 H Calcium 6.0 L* Total Bilirubin 1.8 H Direct Bilirubin 1.0 H AST 220 H Alkaline Phosphatase 738 H Albumin 2.9 L Lipase < 10.0 L Discharge <SKYLER MORALES - Last Filed: 02/26/18 15:19> <SOPHIA JACKSON - Last Filed: 02/28/18 15:06> - Discharge Condition: Critical Disposition: [facility] Scribe Attestation: 02/28/18 15:06 I personally performed the services described documentation, reviewed and edited the documentation which was dictated to describe my presence, and it accurately records my words and actions. (SOPHIA JACKSON) Scribe Documentation - Scribe Written by Tate:: Tate Barrios, 02/26/2018 1537 acting as scribe for :: Jesus <SKYLER MORALES - Last Filed: 02/26/18 15:19>
[2018-02-26] MEDS ORDERED: ONDANSETRON HCL INJ/PF 4 MG/2 ML SDV IV ONE (12:36)
[2018-02-26] MEDS ORDERED: METOCLOPRAMIDE HCL INJ/PF 10 MG/2 ML SDV IV ONE (12:43)
[2018-02-26] MEDS ORDERED: ONDANSETRON HCL INJ/PF 4 MG/2 ML SDV IV PRN (12:45)
[2018-02-26] MEDS ORDERED: OXYCODONE-ACETAMINOPHEN 5-325 MG TABLET PO PRN (12:45)
--- NOTE | 2018-02-26 12:50 | RADIOLOGY REPORT (SQ) ---
EXAM DESCRIPTION: CHEST SINGLE VIEW COMPLETED DATE/TIME: 02/26/2018 12:08 pm REASON FOR STUDY: septic workup COMPARISON: Left rib films dated 02/04/2018 EXAM PARAMETERS: NUMBER OF VIEWS: One view. TECHNIQUE: Single frontal radiographic view of the chest acquired. RADIATION DOSE: NA LIMITATIONS: None. FINDINGS: LUNGS AND PLEURA: There is increased density in the left lower hemithorax with loss of def inition of the left left hemidiaphragm suggesting a small left pleural effusion and I cannot exclude some associated atelectasis or infiltrate in the left lung base. Remaining lung miller are clear. MEDIASTINUM AND HILAR STRUCTURES: No masses. Contour normal. HEART AND VASCULAR STRUCTURES: The configuration of the heart and mediastinal structures is unchanged . BONES: No acute findings. HARDWARE: Port-A-Cath is unchanged in position OTHER: No other significant finding. IMPRESSION: Left basilar densities as noted above TECHNICAL DOCUMENTATION: JOB ID: [id number] [employer]- All Rights Reserved Reading location - IP/workstation name: [email or web address]
[2018-02-26] MEDS ORDERED: VANCOMYCIN HCL 0 MG in DEXTROSE 5%-WATER 250 ML IV NR (13:00)
--- NOTE | 2018-02-26 13:05 | PDOC H&P ---
History of Present Illness Admission Date/PCP: JORGE SOLIMAN DO History of Present Illness: ISAIAH DIGGS is a very pleasant but unfortunate 52 year old male patient with history of stage IV pancreatic cancer currently on chemotherapy presented with chief complaint of weakness shortness of breath and fever of 2 days duration. Patient denies any cough or chest pain. He has palpitation but no diaphoresis. No urinary complaints. His blood work shows markedly elevated leukocytosis of 32,000, lactic acid 3.7 he has also elevated liver enzymes particularly his alkaline phosphatase is 738 and he has also hypocalcemia of 6. They are attending discussed the case with his primary oncologist who agreed to start the patient with antibiotics. Past Medical History Cardiac Medical History: Denies: Congestive Heart Failure, Myocardial Infarction, Hypertension Pulmonary Medical History: Denies: Asthma, Bronchitis, Chronic Obstructive Pulmonary Disease (COPD), Pneumonia, Tuberculosis Neurological Medical History: Denies: Seizures Endocrine Medical History: Reports: Diabetes Mellitus Type 2 Renal/ Medical History: Denies: End Stage Renal Disease Malignancy Medical History: Reports: Pancreatic Cancer - Currently on chemo. GI Medical History: Denies: Cirrhosis, Gastroesophageal Reflux Disease Musculoskeltal Medical History: Denies: Arthritis Psychiatric Medical History: Denies: Bipolar Disorder, Depression Hematology: Reports: Anemia Denies: Bleeding Tendencies Past Surgical History Past Surgical History: Reports: Orthopedic Surgery - bilat wrists, back Social History Smoking Status: Former Smoker Drugs: None - Advance Directive Resuscitation Status: Full Code Family History Family History: None, Reviewed & Not Pertinent, Hypertension, Other - Obesity Parental Family History Reviewed: Yes Children Family History Reviewed: Yes Sibling(s) Family History Reviewed.: Yes Medication/Allergy Home Medications: Ibuprofen [Motrin 800 mg Tablet] 800 mg PO TID #30 tablet 12/10/12 Cephalexin Monohydrate [Keflex 500 mg Capsule] 500 mg PO QID #20 capsule Ibuprofen [Motrin 800 mg Tablet] 800 mg PO TID #30 tablet 05/08/16 Oxycodone HCl/Acetaminophen [Percocet 5-325 mg Tablet] 1 - 2 tab PO ASDIR PRN # 15 tablet 05/08/16 Hydromorphone HCl [Dilaudid 2 mg Tablet] 2 mg PO Q4HP PRN #20 tablet 02/04/18 Allergies/Adverse Reactions: acetaminophen [From Percocet] Allergy (Verified 02/26/18 10:06) oxycodone [From Percocet] Allergy (Verified 02/26/18 10:06) Review of Systems Constitutional: PRESENT: as per HPI Eyes: PRESENT: as per HPI Ears: PRESENT: as per HPI Cardiovascular: PRESENT: as per HPI Respiratory: PRESENT: as per HPI Gastrointestinal: PRESENT: as per HPI Neurological: PRESENT: as per HPI Psychiatric: PRESENT: as per HPI Physical Exam Vital Signs: Temp Pulse Resp BP Pulse Ox 99.2 F 28 H 98/71 L 96 02/26/18 10:06 02/26/18 11:01 02/26/18 11:01 02/26/18 11:01 Intake & Output 02/25/18 02/26/18 02/27/18 06:59 06:59 06:59 Weight 105.687 kg General appearance: PRESENT: mild distress, other Neck exam: ABSENT: carotid bruit, JVD, lymphadenopathy, thyromegaly Respiratory exam: PRESENT: crackles - At the lung bases Cardiovascular exam: PRESENT: tachycardia GI/Abdominal exam: PRESENT: normal bowel sounds, soft. ABSENT: distended, guarding, mass, organolmegaly, rebound, tenderness Neurological exam: PRESENT: alert, awake, oriented to time, oriented to situation Psychiatric exam: PRESENT: depressed Results Laboratory Results: 02/26/18 10:11 02/26/18 10:11 02/26/18 02/26/18 02/26/18 10:11 10:11 10:11 WBC 31.9 H* RBC 3.70 L Hgb 10.2 L Hct 32.0 L MCV 87 MCH 27.7 MCHC 32.0 RDW 17.7 H Plt Count 91 L Seg Neutrophils % Not Reportable Lymphocytes % Not Reportable Monocytes % Not Reportable Eosinophils % Not Reportable Basophils % Not Reportable Absolute Neutrophils Not Reportable Absolute Lymphocytes Not Reportable Absolute Monocytes Not Reportable Absolute Eosinophils Not Reportable Absolute Basophils Not Reportable Sodium 143.7 Potassium 3.9 Chloride 103 Carbon Dioxide 27 Anion Gap 14 BUN 17 Creatinine 0.77 Est GFR ( Amer) > 60 Est GFR (Non-Af Amer) > 60 Glucose 237 H Lactic Acid 3.7 H Calcium 6.0 L* Total Bilirubin 1.8 H AST 220 H ALT 48 Alkaline Phosphatase 738 H Total Protein 6.8 Albumin 2.9 L Lipase < 10.0 L Impressions: Chest X-Ray 02/26/18 11:40 IMPRESSION: Left basilar densities as noted above Assessment & Plan - Diagnosis (1) Sepsis Is this a current diagnosis for this admission?: Yes Plan: Since patient is immunocompromised at we will start him on broad-spectrum antibiotics with cefepime and vancomycin. Sepsis evidenced by leukocytosis, elevated lactic acid, dyspnea, tachycardia and fever. (2) Diabetes 1.5, managed as type 2 Is this a current diagnosis for this admission?: Yes Plan: I will start him on a sliding scale. (3) Stage IV pancreatic cancer Is this a current diagnosis for this admission?: Yes Plan: Primary oncologist. I will consult palliative care for their input. - Inpatient Certification Medical Necessity: Need Close Monitoring Due to Risk of Patient Decompensation, Need for IV Antibiotics
[2018-02-26] MEDS ORDERED: KETOROLAC TROMETHAMINE INJ/PF 30 MG/1 ML SDV IV PRN (15:10)
[2018-02-26] MEDS: VANCOMYCIN HCL 1,500 MG in DEXTROSE 5%-WATER 250 ML IV SCH (18:15)
--- NOTE | 2018-02-26 19:03 | Palliative Consultation Report ---
Consultation From:: SHIRA DEWEY - HPI Chief Complaint: cc: pain and weakness, sepsis Onset: Just prior to arrival Onset/Duration: Gradual Quality of Pain: Achy, Sharp Severity: Moderate Pain Level: 5 Associated Symptoms: Weakness Exacerbated by: Movement HPI Note: Palliative Care Consult Visit 02/26/18 6:10-6;40 PM Appreciate palliative care consult with this very unfortunate 52 year old man who has been diagnosed with Stage 4 pancreatic cancer. He came to the ER today with onset severe abd pain and weakness. He has WBC of 31,000 and is being treated for sepsis. Attempted to talk with joana and his mother, but patient is very uncomfortable and did not want to talk. He is in pain and is waiting on the Toradol ordered. His mother tells me he takes Morphine 30mg q 12 hours at home. Although medication list from ER reports Dilaudid and oxycodone ordered . Nurse tells me they have called Dr. Hunter for pain med orders since he follows with her for treatment. Patient is obviously hurting and says he doesn't want to talk about his care or anything. He seemed alarmed when I said I was from palliative care, so I suspect he did not want to talk about code status. Past Medical History(Consults) - General Information Source: Patient, Parent, [facility] Records Home Medications: Acetaminophen with Codeine [Tylenol #3 Tablet] 1 each PO Q4HP PRN 02/26/18 Enoxaparin Sodium [Lovenox Inj 120 mg/0.8 ml Disp.syrin] 105 mg SUBCUT Q12 02/26 Morphine Sulfate [Morphine Sulfate ER] 30 mg PO Q12 02/26/18 Ondansetron HCl [Zofran 8 mg Tablet] 8 mg PO Q8HP PRN 02/26/18 Allergies/Adverse Reactions: oxycodone [From Percocet] Allergy (Verified 02/26/18 13:36) - Social History Lives with: Family, Parents Family History: None, Reviewed & Not Pertinent Parental Family History Reviewed: No Children Family History Reviewed: No Sibling(s) Family History Reviewed.: No Smoking Status: Former Smoker Frequency of Alcohol Use: None Hx Recreational Drug Use: No Drugs: None Hx Prescription Drug Abuse: No - Past Medical History Cardiac Medical History: Denies: Hx Congestive Heart Failure, Hx Heart Attack, Hx Hypertension Pulmonary Medical History: Denies: Hx Asthma, Hx Bronchitis, Hx COPD, Hx Pneumonia, Hx Tuberculosis Neurological Medical History: Denies: Hx Seizures Endocrine Medical History: Reports: Hx Diabetes Mellitus Type 2 Renal/ Medical History: Denies: Hx Benign Prostatic Hyperplasia, Hx End Stage Renal Disease, Hx Kidney Stones, Hx Peritoneal Dialysis Malignancy Medical History: Reports Hx Pancreatic Cancer - Currently on chemo. Stage IV GI Medical History: Denies: Hx Cirrhosis, Hx Gastroesophageal Reflux Disease, Hx Ulcer Musculoskeltal Medical History: Denies Hx Arthritis, Denies Hx Multiple Sclerosis Psychiatric Medical History: Denies: Hx Bipolar Disorder, Hx Depression, Hx Schizophrenia Hematology: Reports: Anemia Denies: Bleeding Tendencies Hematology Note: Possible blood clot L arm per history - Surgical History Past Surgical History: Reports: Hx Orthopedic Surgery - bilat wrists, back - Immunizations Immunizations up to date: Yes Review of systems All systems: reviewed and no additional remarkable complaints except as stated Constitutional: Chills, Weakness, Recent illness Gastrointestinal: Abdominal pain Neurological/Psychological: Anxiety, Weakness Ojective:Exam Vital Signs: Temp Pulse Resp BP Pulse Ox 97.8 F 102 H 15 108/65 97 02/26/18 15:43 02/26/18 15:43 02/26/18 15:43 02/26/18 15:43 02/26/18 15:43 Intake & Output 02/25/18 02/26/18 02/27/18 06:59 06:59 06:59 Intake Total 73 Balance 73 Weight 106.2 kg - General General Appearance: Alert, Anxious In distress: Moderate Note:: above, did not want to talk due to pain, pleasant but very anxious. Mother and two family members at bedside. Frustrated that he canot get pain meds as ordered, uncomfortable. Nurse has ordered meds from pharmacy. - HEENT Head: Normocephalic - Respiratory Respiratory Status: No respiratory distress - Abdominal Tenderness: Tender - Psychological Associated symptoms: Anxious Objective-Diagnostic Laboratory: 02/26/18 16:40 Lactic Acid 2.8 H Plan and Recommendation Plan and Recommendation: Unfortunately, patient was feeling too bad to discuss advance directives or other. I am sure Dr. Hunter will reorder his Morphine or equivalent to control his pain. If he takes Morphine at home, IV morphine would be appropriate here as he is in a lot of pain and oral meds will take too long to work. Discussed with nurse, who has contacted Dr. Hunter. I will try to see Mr. Pleitez tomorrow again to discuss his advance directives and see if new orders have helped his pain. - Time Spent with Patient Time spent with patient: 15 to 30 Minutes
[2018-02-26] MEDS: CEFEPIME 2 GM/D5W RTU 2 GM/50 ML RTUPB IV SCH (21:53)
--- NOTE | 2018-02-26 22:47 | EKG REPORT ---
SEVERITY:- BORDERLINE ECG - SINUS TACHYCARDIA ATRIAL PREMATURE COMPLEX LOW VOLTAGE IN FRONTAL LEADS BORDERLINE T WAVE ABNORMALITIES : Confirmed by: Robert Villalobos 26-Feb-2018 22:47:20
[2018-02-26] MEDS: MORPHINE SULFATE SR 30 MG TABLET PO SCH (23:50)
[2018-02-27] MEDS ORDERED: LORAZEPAM INJ 2 MG/1 ML VIAL ONE ×2 (00:26→01:56)
[2018-02-27] MEDS ORDERED: LORAZEPAM INJ 2 MG/1 ML VIAL IV ONE ×2 (01:00→01:45)
[2018-02-27] MEDS: VANCOMYCIN HCL 1,500 MG in DEXTROSE 5%-WATER 250 ML IV SCH ×3 (01:15→17:10)
[2018-02-27] MEDS ORDERED: NORMAL SALINE 1000 ML 1,000 ML IV ONE (04:04)
[2018-02-27] MEDS ORDERED: CALCIUM GLUCONATE 2,222 MG in DEXTROSE 5%-WATER 100 ML IV ONE (04:06)
[2018-02-27] MEDS ORDERED: CALCIUM GLUCONATE 1000 MG/10 ML INJ IV ONE (04:30)
[2018-02-27] MEDS ORDERED: LANSOPRAZOLE 30 MG TAB.RAP.DR PO SCH (06:00)
[2018-02-27 06:30] LABS: ANION GAP 14 (5-19); BLOOD UREA NITROGEN 29 mg/dL (7-20); CALCIUM 7.9 mg/dL (8.4-10.2); CARBON DIOXIDE 24 mmol/L (22-30); CHLORIDE 100 mmol/L (98-107); GLUCOSE 354 mg/dL (75-110); POTASSIUM 4.2 mmol/L (3.6-5.0); SODIUM 138.4 mmol/L (137-145)
[2018-02-27 06:58] LABS: HEMATOCRIT 30.2 % (37.9-51.0); HEMOGLOBIN 9.9 g/dL (13.5-17.0); MEAN CORPUSCULAR HGB CONC 32.8 g/dL (32.0-36.0); MEAN CORPUSCULAR VOLUME 85 fl (80-97); RED BLOOD COUNT 3.54 10^6/uL (4.35-5.55); RED CELL DISTRIBUTION WIDTH 17.3 % (11.5-14.0); WHITE BLOOD COUNT 23.7 10^3/uL (4.0-10.5)
[2018-02-27 07:34] LABS: ABSOLUTE LYMPHOCYTES# (MANUAL) 0.5 10^3/uL (0.5-4.7); ABSOLUTE NEUTROPHILS# (MANUAL) 23.2 10^3/uL (1.7-8.2); BASOPHILS % (MANUAL) 0 % (0-2); EOSINOPHILS % (MANUAL) 0 % (0-6); LYMPHOCYTES % (MANUAL) 2 % (13-45); MONOCYTES % (MANUAL) 0 % (3-13); SEGMENTED NEUTROPHILS % (MAN) 98 % (42-78); TOTAL CELLS COUNTED 100
[2018-02-27 07:44] LABS: POLYCHROMASIA SLIGHT
[2018-02-27 07:45] LABS: ANISOCYTOSIS 1+; BURR CELLS SLIGHT; PLATELET COMMENT DECREASED
[2018-02-27 07:48] LABS: PLATELET COUNT 79 10^3/uL (150-450)
[2018-02-27 09:46] LABS: AMORPHOUS SEDIMENT,URINE TRACE /HPF; APPEARANCE,URINE CLOUDY; BILIRUBIN,URINE SMALL (NEGATIVE); COLOR,URINE AMBER; GLUCOSE, URINE 150 mg/dL (NEGATIVE); KETONES,URINE TRACE mg/dL (NEGATIVE); LEUKOCYTE ESTERASE,URINE NEGATIVE (NEGATIVE); NITRITE,URINE NEGATIVE (NEGATIVE); PROTEIN,URINE 100 mg/dL (NEGATIVE)
[2018-02-27] MEDS ORDERED: ENOXAPARIN SODIUM INJ 40 MG/0.4 ML DISP.SYRIN SUBCUT SCH (10:00)
[2018-02-27 11:21] LABS: PATH REVIEW PATHOLOGIST REVIEWED
[2018-02-27] MEDS ORDERED: NORMAL SALINE 1000 ML 1,000 ML IV PRN (11:46)
--- NOTE | 2018-02-27 12:02 | PDOC PROGRESS REPORT ---
Subjective Progress Note for:: 02/27/18 Subjective:: I seen patient sitting by the bedside. He has been staring to the floor. He is running sinus tachycardia in the range of 140-170. His blood pressure is on the lower side and it is difficult to give any AV laura jorge. His left lower extremity is also relatively cold so I requested bilateral arterial Doppler. His blood works are relatively looks normal that his white cell count dropped from 31,000-23,000 and his calcium increased from 6-7.9 after he was given 2 dose of calcium gluconate. His blood culture grew gram-negative gram- negative rods. Palliative care tube was patient and his mother but they are not ready to talk about CODE STATUS at this time. Reason For Visit: SEPSIS Physical Exam Vital Signs: Temp Pulse Resp BP Pulse Ox 99.5 F 123 H 20 110/66 93 02/27/18 07:17 02/27/18 07:17 02/27/18 07:17 02/27/18 07:17 02/27/18 07:17 Intake & Output 02/26/18 02/27/18 02/28/18 06:59 06:59 06:59 Intake Total 1909 Output Total 600 Balance 1909 -600 Weight 106.2 kg Results Laboratory Results: 02/27/18 06:45 02/27/18 05:49 02/26/18 02/27/18 02/27/18 16:40 05:49 05:49 WBC Cancelled RBC Cancelled Hgb Cancelled Hct Cancelled MCV Cancelled MCH Cancelled MCHC Cancelled RDW Cancelled Plt Count Cancelled Seg Neutrophils % Cancelled Lymphocytes % Cancelled Monocytes % Cancelled Eosinophils % Cancelled Basophils % Cancelled Absolute Neutrophils Cancelled Absolute Lymphocytes Cancelled Absolute Monocytes Cancelled Absolute Eosinophils Cancelled Absolute Basophils Cancelled Sodium 138.4 Potassium 4.2 Chloride 100 Carbon Dioxide 24 Anion Gap 14 BUN 29 H Creatinine 1.13 Est GFR ( Amer) > 60 Est GFR (Non-Af Amer) > 60 Glucose 354 H Lactic Acid 2.8 H Calcium 7.9 L Urine Color Urine Appearance Urine pH Ur Specific [place] Urine Protein Urine Glucose (UA) Urine Ketones Urine Blood Urine Nitrite Ur Leukocyte Esterase Urine WBC (Auto) Urine RBC (Auto) 02/27/18 02/27/18 06:45 09:00 WBC 23.7 H RBC 3.54 L Hgb 9.9 L Hct 30.2 L MCV 85 MCH 28.0 MCHC 32.8 RDW 17.3 H Plt Count 79 L Seg Neutrophils % Not Reportable Lymphocytes % Not Reportable Monocytes % Not Reportable Eosinophils % Not Reportable Basophils % Not Reportable Absolute Neutrophils Not Reportable Absolute Lymphocytes Not Reportable Absolute Monocytes Not Reportable Absolute Eosinophils Not Reportable Absolute Basophils Not Reportable Sodium Potassium Chloride Carbon Dioxide Anion Gap BUN Creatinine Est GFR ( Amer) Est GFR (Non-Af Amer) Glucose Lactic Acid Calcium Urine Color KALLIE Urine Appearance CLOUDY Urine pH 5.0 Ur Specific [place] 1.030 Urine Protein 100 H Urine Glucose (UA) 150 H Urine Ketones TRACE H Urine Blood NEGATIVE Urine Nitrite NEGATIVE Ur Leukocyte Esterase NEGATIVE Urine WBC (Auto) 6 Urine RBC (Auto) 1 Impressions: Chest X-Ray 02/26/18 11:40 IMPRESSION: Left basilar densities as noted above Assessment & Plan - Diagnosis (1) Sepsis Qualifiers: Sepsis type: sepsis due to unspecified organism Qualified Code(s): A41.9 - Sepsis, unspecified organism Is this a current diagnosis for this admission?: Yes Plan: His blood culture grew gram-negative rods. Based on the sensitivity pattern we will adjust his antibiotics. Currently he has been on cefepime and vancomycin. (2) Diabetes 1.5, managed as type 2 Is this a current diagnosis for this admission?: Yes Plan: I will start him on a sliding scale. (3) Stage IV pancreatic cancer Is this a current diagnosis for this admission?: Yes Plan: Primary oncologist. I will consult palliative care for their input. - Time Time Spent with patient: 25-34 minutes
[2018-02-27] MEDS ORDERED: CALCIUM CARBONATE 250 MG/VITAMIN D3 125 UNIT TABLET PO ONE (12:30)
[2018-02-27] MEDS: CEFEPIME 2 GM/D5W RTU 2 GM/50 ML RTUPB IV SCH (12:49)
[2018-02-27] MEDS: MORPHINE SULFATE SR 30 MG TABLET PO SCH (13:22)
[2018-02-27] MEDS ORDERED: DIGOXIN INJ 0.5 MG/2 ML AMPULE IV ONE (15:30)
[2018-02-27] MEDS ORDERED: HEPARIN SODIUM,PORCINE/D5W 25,000 UNIT/250 ML RTUINJ IV PRN (15:53)
[2018-02-27] MEDS ORDERED: HEPARIN SOD (PORCINE) 1,000 UNIT/ML 10 ML VIAL IV PRN (16:04)
[2018-02-27] MEDS ORDERED: HEPARIN SOD (PORCINE) 1,000 UNIT/ML 10 ML VIAL IV ONE (16:30)
--- NOTE | 2018-02-27 16:35 | PDOC TRANSFER SUMMARY ---
General Admission Date/PCP: 02/26/18 13:03 JORGE SOLIMAN DO Resuscitation Status: Full Code - Transfer Diagnosis (1) Sepsis Is this a current diagnosis for this admission?: Yes (2) Diabetes 1.5, managed as type 2 Is this a current diagnosis for this admission?: Yes (3) Stage IV pancreatic cancer Is this a current diagnosis for this admission?: Yes (4) Critical lower limb ischemia Is this a current diagnosis for this admission?: Yes - Transfer Medications Home Medications: Acetaminophen with Codeine [Tylenol #3 Tablet] 1 each PO Q4HP PRN 02/26/18 Enoxaparin Sodium [Lovenox Inj 120 mg/0.8 ml Disp.syrin] 105 mg SUBCUT Q12 02/26 Morphine Sulfate [Morphine Sulfate ER] 30 mg PO Q12 02/26/18 Ondansetron HCl [Zofran 8 mg Tablet] 8 mg PO Q8HP PRN 02/26/18 Transfer Medications: Current Medications Calcium Carbonate (Os-[place]ilo 250 Mg With Vitamin D 125 Units) 1 tab PO BID ELIS Stop: 03/29/18 17:59 Enoxaparin Sodium (Lovenox Inj 40 Mg/0.4 Ml Disp.Syrin) 40 mg SUBCUT DAILY ELIS Stop: 03/29/18 09:59 Last Admin: 02/27/18 11:44 Dose: Not Given Heparin Sodium (Porcine) (Heparin Inj 1,000 Unit/Ml 10 Ml Vial) 4,000 unit IV NOW ONE Stop: 02/27/18 16:31 Heparin Sodium (Porcine) (Heparin Inj 1,000 Unit/Ml 10 Ml Vial) 0 - 12,000 unit IV .BOLUS PER PROTOCOL PRN; Protocol PRN Reason: RESPOND TO aPTT VALUES Stop: 03/29/18 16:03 Cefepime HCl (Maxipime Rtu 2 Gm-D5w 50 Ml Premix Bag) 2 gm in 50 mls @ 100 mls/ hr IV Q12 ELIS Stop: 03/05/18 21:59 Last Admin: 02/27/18 12:49 Dose: 50 ml Vancomycin HCl 1,500 mg/ (Dextrose) 250 mls @ 166.667 mls/hr IV Q8A ELIS Stop: 03/05/18 17:59 Last Admin: 02/27/18 15:40 Dose: 1,500 mg Sodium Chloride (Nacl 0.9% 1000 Ml Iv Soln) 1,000 mls @ 125 mls/hr IV CONTINUOUS PRN PRN Reason: THIS MED IS NOT "PRN" Stop: 03/29/18 11:45 Last Admin: 02/27/18 12:51 Dose: 1,000 ml Heparin Sodium/Dextrose (Heparin Rtu 25,000 Unit/250 Ml D5w Premix) 25,000 unit in 250 mls @ 0 mls/hr IV CONTINUOUS PRN; Protocol; Titrate PRN Reason: THIS MED IS NOT "PRN" Stop: 03/29/18 15:52 Ketorolac Tromethamine (Toradol Inj/Pf 30 Mg/1 Ml Sdv) 15 mg IV Q8HP PRN PRN Reason: FOR PAIN Stop: 03/03/18 15:09 Last Admin: 02/26/18 15:54 Dose: 15 mg Lansoprazole (Prevacid 30 Mg Odt Tablet) 30 mg PO Q6AM ELIS Stop: 03/29/18 05:59 Last Admin: 02/27/18 05:36 Dose: 30 mg Morphine Sulfate (Ms-Contin Sr 30 Mg Tablet) 30 mg PO Q12 ELIS Stop: 03/05/18 21:59 Last Admin: 02/27/18 13:22 Dose: Not Given Ondansetron HCl (Zofran Inj/Pf 4 Mg/2 Ml Sdv) 4 mg IV Q8HP PRN PRN Reason: FOR NAUSEA/VOMITING Stop: 03/28/18 12:44 Last Admin: 02/26/18 16:18 Dose: 4 mg Oxycodone/Acetaminophen (Percocet 5-325 Mg Tablet) 1 tab PO Q4HP PRN PRN Reason: FOR BREAKTHROUGH PAIN Stop: 03/05/18 12:44 Last Admin: 02/26/18 21:45 Dose: 1 tab - Allergies Allergies/Adverse Reactions: oxycodone [From Percocet] Allergy (Verified 02/26/18 13:36) Hospital Course Hospital Course: Mr. Vega Pleitez is a very pleasant 52 years old male patient with a diagnosis of stage IV pancreatic cancer admitted yesterday for shortness of breath and sepsis. Patient has been aggressively hydrated with 4 l of bolus of normal saline, and has been also maintenance of normal saline at rate of 1 25 mL /h and he is getting vancomycin and cefepime. Patient has sinus tachycardia ranging between 140 and. 170. Patient got to be given AV laura blockers because of his hypotension. He was given a dose of 0.125 mg digoxin. This morning during my evaluation and found the patient has left cold extremity so I requested bilateral arterial Doppler and he is found to have critical limb ischemia. Since patient has platelet count of 79 according to give him heparin drip. I discussed the case with a vascular at [facility] and he is accepted. Physical Exam Vital Signs: Temp Pulse Resp BP Pulse Ox 99.1 F 164 H 20 89/48 L 94 02/27/18 12:05 02/27/18 14:00 02/27/18 12:05 02/27/18 12:05 02/27/18 12:05 Intake & Output 02/26/18 02/27/18 02/28/18 06:59 06:59 06:59 Intake Total 1909 100 Output Total 600 Balance 1909 -500 Weight 106.2 kg 106.2 kg General appearance: PRESENT: mild distress Head exam: PRESENT: atraumatic, normocephalic Eye exam: PRESENT: conjunctiva pink, EOMI, PERRLA. ABSENT: scleral icterus Respiratory exam: PRESENT: decreased breath sounds - At the lung bases Cardiovascular exam: PRESENT: tachycardia GI/Abdominal exam: PRESENT: normal bowel sounds, soft. ABSENT: distended, guarding, mass, organolmegaly, rebound, tenderness Extremities exam: PRESENT: +2 edema - Left lower extremity is cold and I could not feel his pulse Results Laboratory Results: 02/27/18 06:45 02/27/18 05:49 02/26/18 02/27/18 02/27/18 16:40 05:49 05:49 WBC Cancelled RBC Cancelled Hgb Cancelled Hct Cancelled MCV Cancelled MCH Cancelled MCHC Cancelled RDW Cancelled Plt Count Cancelled Seg Neutrophils % Cancelled Lymphocytes % Cancelled Monocytes % Cancelled Eosinophils % Cancelled Basophils % Cancelled Absolute Neutrophils Cancelled Absolute Lymphocytes Cancelled Absolute Monocytes Cancelled Absolute Eosinophils Cancelled Absolute Basophils Cancelled Sodium 138.4 Potassium 4.2 Chloride 100 Carbon Dioxide 24 Anion Gap 14 BUN 29 H Creatinine 1.13 Est GFR ( Amer) > 60 Est GFR (Non-Af Amer) > 60 Glucose 354 H Lactic Acid 2.8 H Calcium 7.9 L Urine Color Urine Appearance Urine pH Ur Specific [place] Urine Protein Urine Glucose (UA) Urine Ketones Urine Blood Urine Nitrite Ur Leukocyte Esterase Urine WBC (Auto) Urine RBC (Auto) 02/27/18 02/27/18 06:45 09:00 WBC 23.7 H RBC 3.54 L Hgb 9.9 L Hct 30.2 L MCV 85 MCH 28.0 MCHC 32.8 RDW 17.3 H Plt Count 79 L Seg Neutrophils % Not Reportable Lymphocytes % Not Reportable Monocytes % Not Reportable Eosinophils % Not Reportable Basophils % Not Reportable Absolute Neutrophils Not Reportable Absolute Lymphocytes Not Reportable Absolute Monocytes Not Reportable Absolute Eosinophils Not Reportable Absolute Basophils Not Reportable Sodium Potassium Chloride Carbon Dioxide Anion Gap BUN Creatinine Est GFR ( Amer) Est GFR (Non-Af Amer) Glucose Lactic Acid Calcium Urine Color KALLIE Urine Appearance CLOUDY Urine pH 5.0 Ur Specific [place] 1.030 Urine Protein 100 H Urine Glucose (UA) 150 H Urine Ketones TRACE H Urine Blood NEGATIVE Urine Nitrite NEGATIVE Ur Leukocyte Esterase NEGATIVE Urine WBC (Auto) 6 Urine RBC (Auto) 1 Impressions: Chest X-Ray 02/26/18 11:40 IMPRESSION: Left basilar densities as noted above
[2018-02-27 16:43] LABS: AMORPHOUS SEDIMENT,URINE TRACE /HPF; APPEARANCE,URINE CLOUDY; BILIRUBIN,URINE NEGATIVE (NEGATIVE); COLOR,URINE DARK YELLOW; GLUCOSE, URINE 150 mg/dL (NEGATIVE); KETONES,URINE NEGATIVE (NEGATIVE); LEUKOCYTE ESTERASE,URINE NEGATIVE (NEGATIVE); NITRITE,URINE NEGATIVE (NEGATIVE); PROTEIN,URINE 100 mg/dL (NEGATIVE); URINE SPECIFIC GRAVITY 1.024
--- NOTE | 2018-02-27 17:19 | XCELERA REPORT ---
[address] [address] Lower Extremity Arterial Evaluation Name: ISAIAH DIGGS Age: 52 yrs Gender: Male : 1965 Patient Status: Inpatient Patient Location: [address] [place], [place] [address]A Study Date: 02/27/2018 02:32 PM Procedure: A color flow and duplex scan of the lower extremity arteries was performed bilaterally with velocity and waveform anaylsis. Reason For Study: decreased pulse Lt leg Ordering Physician: THIEN NAPIER Performed By: Cordell Blas Measurements and Calculations Right Left MANAGER CASINO PSV 108.7 165.8 cm/sec Prox PFA PSV -45.6 -86.0 cm/sec Prox SFA PSV 92.5 105.9 cm/sec Mid SFA PSV -104.2 -80.5 cm/sec Dist SFA PSV -71.1 -39.6 cm/sec Prox Pop A PSV 82.1 0.20 cm/sec Dist SHAR PSV 59.2 9.2 cm/sec Dist RUBBER [employer] TESTER PSV 26.3 20.4 cm/sec Rocky Pedis PSV 37.0 cm/sec Right Side Arterial Evaluation Normal velocity and triphasic waveforms noted in the Common Femoral artery. The biphasic to the infrageniculate vessels. Well maintained velocities. 20-49 % stenosis at the Femoral artery. Ankle Brachial index declined.. Left Side Arterial Evaluation Normal velocity and triphasic waveforms noted in the Common Femoral artery. Biphasic in the Femoral. No flow in the Popliteal artery. Minimal, trickle flow in the infrageniculate vessels. Barely maintained velocities distally. 20-49 % stenosis at the Femoral artery. With Occlusion of the Popliteal ,severe sequential disease. Ankle Brachial index declined.. Critical Findings Discussed with Dr Napier at about 1540. Emphasized the possibility of limb loss with the extreme severity of disease on left. Interpretation Summary Moderate hemodynamically significant lesions in the right lower extremity only, on duplex imaging, at rest. Severe hemodynamically significant lesions in the left lower extremity only, on duplex imaging, at rest. : THIEN NAPIER > Gary Gaines
[2018-02-27] MEDS ORDERED: CALCIUM CARBONATE 250 MG/VITAMIN D3 125 UNIT TABLET PO SCH (18:00)
[2018-02-27] MEDS ORDERED: METOPROLOL TARTRATE PF/INJ 5 MG/5 ML SDV IV ONE ×2 (18:53→19:20)
[2018-02-28 00:43] VITALS: BP 97/69
[2018-02-28] MEDS ORDERED: DIGOXIN 0.125 MG TABLET PO SCH (10:00)
== END 2018-02-28 00:05 | disposition short-term general hospital (02) | DRG 872 ==
LOC: ER 09:56 → EH 13:03 → 3S 15:23 → ICU 02-27 17:37
PROVIDERS: ADMIT Internal Medicine; ATTEND Internal Medicine
DX: A41.9 Sepsis, unspecified organism (principal); C25.9 Malignant neoplasm of pancreas, unspecified; C79.51 Secondary malignant neoplasm of bone; I99.8 Other disorder of circulatory system; E11.9 Type 2 diabetes mellitus without complications; E83.51 Hypocalcemia; R53.1 Weakness
CPT/HCPCS: 36415; 71045; 80048; 80053; 81001; 83605; 83690; 85025; 87040; 87077; 87186; 93005; 93010; 93925; 96361; 96365; 96375; 99285; J0610; J0692; J1160; J1885; J2060; J2405; J2543; J2765; J3370; J3490; J7030; J7060